=== PATIENT | male | born 1955 | race Caucasian/White ===

== ENCOUNTER 2022-06-11 09:08 | Outpatient (CLI) | payer MEDICARE, OTHER, SELFPAY ==
[2022-06-11 13:06] LABS: Chloride* 105 mmol/L (96-114)
[2022-06-11 13:07] LABS: Sodium* 137 mmol/L (135-149)
[2022-06-11 13:09] LABS: Carbon Dioxide* 23 mmol/L (20-32); Creatinine* 0.9 mg/dL (0.5-1.5); Estimated Glomerular Filt Rate 92 ml/min
[2022-06-11 13:10] LABS: Blood Urea Nitrogen* 19 mg/dL (7-30); Calcium* 9.6 mg/dL (8.4-10.6); Glucose* 106 mg/dL (60-115)
[2022-06-11 13:37] LABS: PSA Screen* 2.45 ng/mL (0.10-4.00)
== END 2022-06-11 09:09 | disposition home or self-care (01) ==
PROVIDERS: PCP Internal Medicine; Visit Provider Internal Medicine
DX: I10 Essential (primary) hypertension (principal); R97.20 Elevated prostate specific antigen [PSA]; Z12.5 Encounter for screening for malignant neoplasm of prostate
CPT/HCPCS: 80048; 84153

== ENCOUNTER 2022-10-14 08:00 | Outpatient (CLI) | payer MEDICARE, SELFPAY ==
[2022-10-14 09:52] LABS: Albumin* 4.1 g/dL (3.3-5.0); Chloride* 111 mmol/L (96-114)
[2022-10-14 09:53] LABS: Potassium* 4.8 mmol/L (3.6-5.1); Sodium* 140 mmol/L (135-149)
[2022-10-14 09:55] LABS: Alkaline Phosphatase* 106 U/L (40-150); Aspartate Amino Transferase* 31 U/L (12-35); Bilirubin Total* 0.7 mg/dL (0.1-1.5); Blood Urea Nitrogen* 33 mg/dL (7-30); Carbon Dioxide* 20 mmol/L (20-32); Cholesterol* 178 mg/dL (90-199); Creatinine* 1.1 mg/dL (0.5-1.5); Estimated Glomerular Filt Rate 73 ml/min
[2022-10-14 09:56] LABS: Alanine Aminotransferase* 34 U/L (4-50); Calcium* 9.4 mg/dL (8.4-10.6); Glucose* 108 mg/dL (60-115); HDL Cholesterol* 47 mg/dL (>=40); LDL Cholesterol Calculated 75 mg/dL (<100); Triglycerides* 281 mg/dL (40-149)
[2022-10-14 10:09] LABS: Creatinine Urine 167.3 mg/dL
[2022-10-14 10:12] LABS: Microalbumin Creatinine Ratio 0 mg/g (0-30); Microalbumin Urine 1 mg/dL
[2022-10-14 10:26] LABS: PSA Screen* 3.31 ng/mL (0.10-4.00)
== END 2022-10-14 08:01 | disposition home or self-care (01) ==
LOC: NFLDREF 08:00
PROVIDERS: PCP Internal Medicine; Visit Provider Internal Medicine
DX: E11.9 Type 2 diabetes mellitus without complications (principal); N40.1 Benign prostatic hyperplasia with lower urinary tract symptoms; E78.5 Hyperlipidemia, unspecified; E66.9 Obesity, unspecified; I10 Essential (primary) hypertension; R97.20 Elevated prostate specific antigen [PSA]
CPT/HCPCS: 80053; 80061; 82043; 82570; 84153

== ENCOUNTER 2022-12-14 19:44 | Outpatient (CLI) | payer MEDICARE, SELFPAY ==
--- OUTSIDE RECORDS SUMMARY | 2022-12-14 19:46 | XMS_ITS | Continuity of Care Document ---
Author Name Unknown Organization [facility] Address [address] [address] [place] [address] Phone Care Team Providers Care Nsh Teacher Name Role Phone Unavailable Unavailable Unavailable Allergies, Adverse Reactions, Alerts Substance Reaction Status Criticality No Known Allergies Active No Inform ation Medications Medication Instructions Dosage Effective Dates (start - stop) Status Comments finasteride 5 mg tablet take 1 tablet by oral route every day 5 MG - Active atorvastatin 40 mg tablet take 1 tablet by oral route every day 40 MG - Active aspirin 325 mg tablet take 1 Tablet by Oral route every day 1 Tablet - Active MiralaxBisacodylMagCit Colon Prep Use as directed - No Longer Active SIMVASTATIN (unknown strength) every day Not Available - No Longer Active Procedures Procedure Date Adenoma(s), Other Neoplasm Detected Duri ng Screen Colonoscopy Flex; W/remov Les- 18 Colonoscopy Flex; W/bx 1/mx Level Iv-surg Path Gross/micro 18 Colonoscopy Flex; Dx (sep Pro) 08 Colonoscopy Flex; Dx (may Advance Directives Directive Yes / No Effective Date File Name No Information Encounters Encounter Description Practice Location Reason(s) For Visit Diagnoses Date Provider Providers Copied on Encounter [facility], [address] [address], [place], [id number], [place] tel:[phone] Eladio [facility] No Information 0 8 No Information [facility], [address] [address], [place], [id number], [place] tel:[phone] [facility] Colorectal polypsDivertic ulosis of colon without diverticulitis Encounter for screening for malignant neoplasm of colonBenign neoplasm of ascending colonDvrtclos of lg int w/o perforation or abscess w/o bleedingBenign neoplasm of ascending colon 0 8 Abdiaziz Heaton. [address], [id number], [place]. tel:[phone] Referring Provider: Referral Self. [facility], [address] [address], [place], [id number], [place] tel:[phone] [facility] No Information 8 Bob Levi. [address], [id number], [place]. tel:[phone] [facility], [address] [address], [place], [id number], [place] tel:[phone] [facility] Diverticulosis Of ColonDiverticu losis Of ColonAbdominal Pain, UnspecifiedAbd ominal Pain, Unspecified 8 Gabriel Jimenez. 3001 [facility], [address], [id number], [place]. tel:[phone] [facility], [address] [address], [place], [id number], [place] tel:[phone] [facility] 5 No Information Family History Family Member Type Diagnosis Age At Onset Mother Problem (finding) Mother Problem (finding) cancer of colon Father Problem (finding) gallbladder disease Son Problem (finding) Alive and well Daughter Problem (finding) Alive and well Brother Problem (finding) Alive and well Daughter Problem (finding) asthma Sister Problem (finding) Alive and well Payers Payer name Insurance type Covered green party ID Authoriza tion(s) No Information Social History Type Description Quantity Date Captured Comments Sex Male Smoking Status No Information Chief Complaint And Reason For Visit No Information Reason For Referral Reason For Referral No Information Plan Of Treatment Date Type Action Status No Information History Of Present Illness Encounter Date Complaint History Of Prese nt Illness No Information Functional Status Date Functional Assessmen t No Information Instructions Date Instruction Additional Infor yusuf Diverticulosis/Diverticulitis Re lated to Colorectal polyps Colon Polyps Related to Color ectal polyps Colon Cancer Prevention Related to Colorectal polyps Assessments Type Assessment Date No Information Patient Care Teams Name Effective Dates (start - stop) Status Members No Information
== END 2022-12-14 19:45 | disposition home or self-care (01) ==
LOC: SLEEP 19:44
PROVIDERS: PCP Internal Medicine; Visit Provider Otolaryngology
DX: G47.30 Sleep apnea, unspecified (principal); G47.19 Other hypersomnia; R06.83 Snoring
CPT/HCPCS: 95806

== ENCOUNTER 2023-07-22 09:21 | Outpatient (CLI) | payer MEDICARE, OTHER, SELFPAY | END 2023-07-22 09:22 | disposition home or self-care (01) | PROVIDERS: PCP Internal Medicine; Referring Provider Internal Medicine; Visit Provider Internal Medicine | DX: Z12.5 Encounter for screening for malignant neoplasm of prostate (principal); E11.9 Type 2 diabetes mellitus without complications | CPT/HCPCS: 84153 ==

== ENCOUNTER 2024-02-10 08:42 | Outpatient (CLI) | payer MEDICARE, OTHER, SELFPAY ==
--- OUTSIDE RECORDS SUMMARY | 2024-02-27 22:22 | XMS_ITS | Data Portability ---
Author Organization [place] - [facility], [facility] Address [address] [place] [address] Care Team Providers Care Mining Engineering Technologist Name Role Phone EFREM ROSA Primary Care Provider Assessment No assessment recorded. Plan of Treatment Reminders Order Date Submit Date Provider Last Modified By Organization Details Last Modified Time Details Appointments None recorded. Lab PSA, total, serum or plasma 2019 021 [email or web address] Not available 1 14:44:53 PSA, total, serum or plasma 2019 021 [email or web address] Not available 1 14:44:53 PSA, total, serum or plasma 2021 022 [email or web address] Not available 3 09:35:29 Referral None recorded. Procedures bladder scan (PROC) 2019 020 [email or web address] [facility], [address], [address], [place], [address], 0 17:15:49 Surgeries None recorded. Imaging None recorded. Medication Orders finasterid e 5 mg tablet 2019 020 INTERFACE [id number], [address], [place], [address], 0 17:29:07 finasterid e 5 mg tablet 2020 021 PHILLIP [id number], [address], [place], [address], 1 10:15:56 finasterid e 5 mg tablet 2021 022 [id number], [address], [place], [address], 2 11:47:08 finasterid e 5 mg tablet 2023 024 [id number], [address], [place], [address], 4 10:12:55 Patient TargetsNo targets recorded. Patient InstructionsNo instructions recorded. Reason for Referral None Reported. Results Created Date Observation Date Name Description Value Unit Range Abnormal Flag LastModifiedBy Organization Detail LastModifiedTime 05/07/2020 bladd er scan (PROC ) Volume (in mL) 8 mLs Not Available [address] [address], [place], [address], 05/07/2020 17:15:27 05/16/20 20 bladd er scan (PROC ) No observ ation record ed. [email or web address] [id number] [facility] [address], [place], [address], 05/16/2020 09:43:47 05/18/20 21 05/15/2021 bladd er scan (PROC ) No observ ation record ed. [email or web address] Not Available 05/18/2021 10:07:45 06/25/20 22 06/22/2022 bladd er scan (PROC ) No observ ation record ed. BARCODE Not Available 06/25/2022 13:58:56 10/12/19 24 10/05/2023 bladd er scan (PROC ) No observ ation record ed. BARCODE Not Available 10/12/2023 10:33:25 Result Notes None recorded. Problems Name Status Onset Date Resolution Date Notes Provider Name and Address Organization Details Recorded Time Prostate specific antigen above reference range Active 012 790.93 : ELEVATED PSA - Notes:NEAG TIVE TRUS BIOPSY X 2 --11/2007 DR VALERA AND 04/25/2012 DR LYNN -VOLUME OF PROSTATE 80ml Not Available [facility] 02/21/2020 02:08:08 Lower urinary tract symptoms due to benign prostatic hypertrophy Active 022 Alcides Maravilla MD [address], [place], [address], [facility] 06/22/2022 11:44:53 Problem Notes None recorded. Procedures Surgical History Date Name Laterality Status Provider Name and Address Organization Details Recorded Time 10/05/19 24 COMPLEX VISIT completed Alcides Maravilla MD [address], [place], [address], [facility] 10/05/2023 11:02:20 10/05/19 24 Bladder Scan completed Delia Bright null, [facility] 10/05/2023 09:52:32 06/22/20 22 Bladder Scan completed [facility] null[facility] 06/22/2022 11:35:32 05/15/20 21 Bladder Scan completed Krista Kaplan null, [facility] 05/15/2021 10:03:07 09/05/19 19 Colonoscopy completed Delia Bright null, [facility] 10/05/2023 09:42:03 [facility]cyst[facility]/07[facility]2020 17:17:15 Imaging Results Imaging Date Name Status LastModified by Organiz ation Details LastModified Time 05/16/2020 bladder scan (PROC) completed [email or web address] [facility] [address], [place], [address], 05/16/2020 09:43:47 05/15/2021 bladder scan (PROC) completed BARCODE Information not available 05/18/2021 10:07:45 06/22/2022 bladder scan (PROC) completed BARCODE Information not available 06/25/2022 13:58:56 10/05/2023 bladder scan (PROC) completed BARCODE Information not available 10/12/2023 10:33:25 Procedure Notes None recorded. Medical Equipment None Reported. Allergies Allergen ID Allergen Name Allergen Category Reaction Reaction Severity Criticality Documentation Date Start Date Code Code System Note Provider Name and Address Organization Details Recorded Time 512195 amoxicill in medicatio n Not available Not available Not available 02/21/20202017 723 RxNorm Not Available [facility] 0 00:41:05 566370 Crestor medicatio n Not available Not available Not available 02/21/20202017 44262 4 RxNorm Not Available [facility] 0 00:41:05 274805 Dilantin medicatio n Not available Not available Not available 02/21/20202017 83069 0 RxNorm Not Available [facility] 0 00:41:05 184090 acetamino phen / hydrocodo ne medicatio n Not available Not available Not available 02/21/20202017 11701 2 RxNorm Not Available [facility] 0 00:41:05 870842 latex environme nt,medica tion Not available Not available Not available 02/21/20202017 91767 91 RxNorm Not Available [facility] 0 00:41:06 048392 phenytoin medicatio n Not available Not available Not available 02/21/20202017 8183 RxNorm Not Available [facility] 0 00:41:06 331014 sulfameth oxazole / trimethop rim medicatio n Not available Not available Not available 02/21/20202017 19079 RxNorm Not Available [facility] 0 00:41:06 Medications Name Sig Start Date Stop Date Status Note LastModified by Organization Details LastModified Time atorvastati n 40 mg tablet 05/15 completed Not Available Not Available Not Available valsartan 80 mg tablet active Not Available Not Available Not Available lisinopril 10 mg tablet 06/22 completed Not Available Not Available Not Available metformin ER 500 mg tablet,exte nded release 24 hr active Not Available Not Available Not Available doxycycline hyclate 100 mg tablet 05/15 completed Not Available Not Available Not Available finasteride 5 mg tablet TAKE ONE TABLET BY MOUTH ONE TIME DAILY 2023 active Not Available Not Available Not Avai lable valsartan 40 mg tablet bid 10/05 completed Not Available Not Available Not Available rosuvastati n 20 mg tablet active Not Available Not Available Not Available aspirin active Not Available Not Avail able Not Available Accu-Chek Guide test strips USE 1 STRIP TO TEST BLOOD SUGAR TWICE DAILY active Not Available Not Available No t Available Accu-Chek Fastclix Lancet Drum USE TO TEST BLOOD SUGAR TWICE DAILY. active Not Available Not Available No t Available QuickVue At-Home COVID-19 Test kit [facility] IN [facility] . 10/05 completed Not Available Not Available Not Available Paxlovid 300 mg (150 mg x 2)-100 mg tablets in a dose pack 10/05 completed Not Available Not Available Not Available Vitals Date Recorded Body height Body mass index (BMI) Body weight Provider Name and Address Organization Details Last Updated DateTime 06/22/2022 172.72 cm 31.5 kg/m2 78363.62 g Ricci Vasquez [facility] 06/22/2022 11:27:56 Date Recorded Body height Body mass index (BMI) Body weight Provider Name and Address Organization Details Last Updated DateTime 10/05/2023 172.72 cm 31.9 kg/m2 30705.4 g Delia Bright [facility] 10/05/2023 09:41:27 Date Recorded Body weight Body mass index (BMI) Body height Provider Name and Address Organization Details Last Updated DateTime 05/15/2021 75856.62 g 31.5 kg/m2 172.72 cm Juan Luke [facility] 05/15/2021 09:57:10 Date Recorded Body height Body mass index (BMI) Body weight Provider Name and Address Organization Details Last Updated DateTime 05/07/2020 172.72 cm 31.5 kg/m2 18119.62 g Juan Luke [facility] 05/07/2020 16:59:38 Social History Question Answer Notes LastModified by Organizat ion Details LastModified Time Tobacco Smoking Status Never Smoker Juna cruz [facility] 05/07/2020 17:00:06 What Is Your Level Of Alcohol Consumption? Occasional Information not available 05/07/2020 What Is Your Level Of Caffeine Consumption? Moderate Information not available 05/07/2020 Recreational Drug Use No Information not available 05/07/2020 What Was The Date Of Your Most Recent Tobacco Screening? 10/05/2023 [email or web address] Information not available 10/05/2023 Have You Ever Been Counseled For Unhealthy Alcohol Use? No [email or web address] Information not available 10/05/2023 Do You Use Any Illicit Or Recreational Drugs? No [email or web address] Information not available 10/05/2023 Has Tobacco Cessation Counseling Been Provided? No [email or web address] Information not available 10/05/2023 Do You Or Have You Ever Used Any Other Forms Of Tobacco Or Nicotine? No [email or web address] Information not available 10/05/2023 How Many Days In The Past Year Have You Consumed 5 Or More Drinks? 0 [email or web address] Information no t available 10/05/2023 Sex: Unknown Functional Status None recorded. Mental Status None recorded. Family History Relationship Description Onset Age of this Age Resolved Age Notes Father Family history of Hypertension Mother Family history of diabetes mellitus Mother Family history of malignant neoplasm Unsure where it originated Medical History Condition Response Diabetes Y Other Y Bleeding Disorder N High Blood Pressure Y High Cholesterol Y Cancer N Depression N Immunizations Vaccine Type Date Status Provider Name and Address Organization Details Recorded Time [facility]V [facility]14/[facility] 10:10:39 zoster recombinant 01/16/2019 [facility]2023 10:10:39 zoster recombinant 03/21/2019 completed Rea Gra f null [facility] 09/30/2023 10:10:39 zoster recombinant [facility]/26/[facility] 10:10:39 COVID-19, mRNA, LNP-S, PF, 30 mcg/0.3 mL dose 10/29/[address] [facility] 09/30/2023 10:10:39 COVID-19, mRNA, LNP-S, PF, 30 mcg/0.3 mL dose 11/26/2020 completed Rea Bora anthony [facility] 09/30/2023 10:10:39 COVID-19, mRNA, LNP-S, PF, 30 mcg/0.3 mL dose 06/10/2021 completed Rea Anamosa null, [facility] 09/30/2023 10:10:39 COVID-19, mRNA, LNP-S, PF, 30 mcg/0.3 mL dose, ladan-sucrose 03/31/2022 completed Rea [facility]amosa null, [facility] 09/30/2023 10:10:39 typhoid, unspecified formulation 02/04/2003 completed Rea Bora null, [facility] 09/30/2023 10:10:39 Td (adult), 5 Lf tetanus toxoid, preservative free, adsorbed 09/29/2017 completed Rea Bora null, [facility] 09/30/2023 10:10:39 Td (adult), 2 Lf tetanus toxoid, preservative free, adsorbed 03/14/1997 completed Rea Bora null, [facility] 09/30/2023 10:10:39 Hep A, pediatric, unspecified formulation 09/09/1999 completed Rea Bora null, [facility] 09/30/2023 10:10:39 Hep A, pediatric, unspecified formulation 02/17/1999 completed Rea Anamosa null, [facility] 09/30/2023 10:10:39 Influenza, adjuvanted, quadrivalent, PF 07/01/2022 completed Delia May null, [facility] 10/05/2023 09:41:32 Influenza, adjuvanted, quadrivalent, PF 08/18/2023 completed Delia May null, [facility] 10/05/2023 09:41:32 COVID-19, mRNA, LNP-S, bivalent, PF, 30 mcg/0.3 mL dose 07/05/2022 completed Delia January null, [facility] 10/05/2023 09:41:32 COVID-19, mRNA, LNP-S, PF, 50 mcg/0.5 mL 06/17/2023 completed Delia January null, [facility] 10/05/2023 09:41:32 pneumococcal polysaccharide PPV23 01/25/2019 completed Rea Anamosa null, [facility] 09/30/2023 10:10:39 Pneumococcal conjugate PCV 13 12/25/2018 completed SHANEL Nieves [facility] 09/30/2023 10:10:39 Past Encounters Encounter ID Performer Location Encounter Start Date Encounter Closed Date Diagnosis/Indication Diagnosis SNOMED-CT Code [id number] [facility] [address] [place] [address] 05/07/2020 16:55:31 05/15/2020 12:45:32 Benign prostatic hyperplasia with outflow obstruction 806900818 [id number] [facility] [address] [place] [address] 05/15/2021 09:31:44 05/18/2021 15:33:04 Benign prostatic hyperplasia with outflow obstruction 480840346 Prostate s pecific antigen above reference range 278435471 [id number] Alcides Maravilla MD [address] [place] [address] 06/22/2022 11:22:56 06/24/2022 11:50:18 Lower urinary tract symptoms due to benign prostatic hypertrophy [id number] Prostate s pecific antigen above reference range [id number] Alcides [facility]illa MD [facility] [address] [place] [address] 10/05/2023 09:31:03 10/10/2023 11:20:32 Prostate specific antigen above reference range 171085221 Lower urin arabella tract symptoms due to benign prostatic hypertrophy 22607014396351 Health Concerns Section Related Observation LastModified by Organization Detai ls LastModified Time None Recorded Concern Status LastModified by Organization Details LastModified Time None Recorded Advance Directives Directive None Recorded Payers Encounter Date Sequence Insurance Name Policy Number Policy Malhotra Covered Member ID Malhotra Member ID Guarantor Name 05/07/2020 1 [place] [employer] [facility] Omid Polanco [id number] Omid Polanco 05/07/2020 2 [facility] [id number] Omid Polanco [id number] Omid Polanco 05/15/2021 1 [place] [employer] [facility] Omid Polanco [id number] Omid Lindsay Polanco 05/15/2021 2 MEDICA (MEDICARE SUPPLEMENT) [id number] Omid Dong Collin [id number] Omid Polanco 06/22/2022 1 [place] [employer] [facility] Omid Polanco [id number] Omid Polanco 06/22/2022 2 MEDICA (MEDICARE SUPPLEMENT) [id number] Omid Dong Collin [id number] Omid Lindsay Collin 10/05/2023 1 [place] [employer] [facility] Omid Polanco [id number] Omid Polanco 10/05/2023 2 INSURANCE [employer]MINISTR[employer] SOLUT[employer] - MEDICA (MEDICARE SUPPLEMENT) Omid Lindsay Collin [id number] Omid Neftali Polanco Notes Date Note Type Note Provider Name and Address Organization Details Recorded Time 05/07/2020 text/html HPI Notes: Has h ad negative biopsy by Dr. Valera [address] Lynn 2011. Prostate volume 80 gm. Does not have any voiding sx. AUA SS 2. No family hx of prostate cancer.PSA 9.28 04/08/14. He underwent MRI of the prostate on 05/24/14 suggesting a 7 mm PI-RADS 4 lesion at the 6:00 apex peripheral zone. 11 cores of cognitive fusion TRUS biopsy on 06/18/14 are all benign. Prostate measures 100 gm by MRI and 112 gm by TRUS. 07/06/17: PSA 9.99; MRI Oct 2016 shows small PIRADS 2 lesions, gland 126 gm. Has worsening urge/urge incontinence. 02/06/18: Has been on finasteride for 7 months and PSA down to 3.45 (6.9 adjusted). 02/07/19: PSA 3.66 (7.3 adjusted) at [place] 12/21/18. No new urinary sx. Doing well on finasteride 12/21/19: PSA 2.51 (5.02 adjusted); Urinary sx stable. Alcides Maravilla MD [address] [place] [address],[address], [place], [address], [facility] 05/07/2020 18:24:32 05/15/2021 text/html HPI Notes: Has h ad negative biopsy by Dr. Valera [address] Lynn 2011. Prostate volume 80 gm. Does not have any voiding sx. AUA SS 2. No family hx of prostate cancer.PSA 9.28 04/08/14. He underwent MRI of the prostate on 05/24/14 suggesting a 7 mm PI-RADS 4 lesion at the 6:00 apex peripheral zone. 11 cores of cognitive fusion TRUS biopsy on 06/18/14 are all benign. Prostate measures 100 gm by MRI and 112 gm by TRUS. 07/06/17: PSA 9.99; MRI Oct 2016 shows small PIRADS 2 lesions, gland 126 gm. Has worsening urge/urge incontinence. 02/06/18: Has been on finasteride for 7 months and PSA down to 3.45 (6.9 adjusted). 02/07/19: PSA 3.66 (7.3 adjusted) at [place] 12/21/18. No new urinary sx. Doing well on finasteride 12/21/19: PSA 2.51 (5.02 adjusted); Urinary sx stable. 05/15/21: He continues to do well on finasteride. AUA symptom score 4, bother 1. Postvoid residual 0 mL. PSA 2.34 (4.68 adjusted) on 02/16/2021 at [facility]. Alcides Maravilla MD [address] [place] [address],[address], [address], [facility] 05/15/2021 11:42:07 06/22/2022 text/html HPI Notes: Very pleasant long-term patient with history of elevated PSA. He formally followed with Dr. Valera and Dr. Lynn and had an MRI and biopsy in 2013 which was benign. Negative MRI in 2017. Prostate measured 126 cm??. He is a managed with long-term finasteride and PSA has come down from 9.9 now to 2.45 (4.9 adjusted). Urinary symptoms are well controlled. Alcides Maravilla MD [address] [place] [address],[address], [address], [facility] 06/22/2022 13:01:50 10/05/2023 text/html HPI Notes: 06/22/22: Very pleasant long-term patient with history of elevated PSA. He formally followed with Dr. Valera and Dr. Lynn and had an MRI and biopsy in 2013 which was benign. Negative MRI in 2017. Prostate measured 126 cm??. He is a managed with long-term finasteride and PSA has come down from 9.9 now to 2.45 (4.9 adjusted). Urinary symptoms are well controlled. 10/05/23: He is doing well on finasteride. Recent PSA 2.82 (5.64 adjusted). Postvoid residual 14 mL. AUA symptom score 5, bother 0. Alcides Maravilla MD [address] [place] [address],[address], [address], [facility] 10/05/2023 11:02:43
--- OUTSIDE RECORDS SUMMARY | 2024-02-27 22:22 | XMS_ITS | Continuity of Care Document ---
Author Organization [facility] Address [address] [address] [place] [address] Phone Care Team Providers Care Home Health Billing Specialist Name Role Phone Alisson SCHULTE [place] Unavailable Unavailab le Allergies, Adverse Reactions, Alerts Substance Reaction Status Criticality No Known Allergies Active No Inform ation Medications Medication Instructions Dosage Effective Dates (start - stop) Status Comments metformin 500 mg tablet take 1 tablet by ORAL route 2 times every day with morning and evening meals 500 MG - Active valsartan 80 mg tablet take 1 tablet by oral route every day 80 MG - Active finasteride 5 mg tablet take 1 tablet by oral route every day 5 MG - Active atorvastatin 40 mg tablet take 1 tablet by oral route every day 40 MG - Active aspirin 325 mg tablet take 1 Tablet by O ral route every day 1 Tablet - Active Procedures Procedure Date Colonoscopy Flex; W/remov Les- 23 Level Iv-surg Path Gross/micro 23 Adenoma(s), Other Neoplasm Detected Duri ng Screen Colonoscopy Flex; W/remov Les- 18 Colonoscopy Flex; W/bx 1/mx Level Iv-surg Path Gross/micro 18 Colonoscopy Flex; Dx (may Pro) Colonoscopy Flex; Dx (may Advance Directives Directive Yes / No Effective Date File Name No Information Encounters Encounter Description Practice Location Reason(s) For Visit Diagnoses Date Provider Providers Copied on Encounter [facility], [address] [address], [place], [id number], [place] tel:[phone] [facility] No Information 3 Alisson ERIS JimenezOneida. [address] [facility] [facility] [address], [place], [place], [id number], [place]. tel:[phone] Referring Provider: Karine Nichols, [address] [facility] [address], [place], [address] . tel:[phone] [facility], [address] [address], [place], [id number], [place] tel:[phone] [facility] GI Symptoms or Concerns (chief complaint) Personal history of colonic polypsColorectal polypsDiverticul osis of colon without diverticulitisHe morrhoids, internalEncounte r for screening for malignant neoplasm of colonBenign neoplasm of transverse colonBenign neoplasm of descending colonEncounter for screening for malignant neoplasm of colonBenign neoplasm of descending colonBenign neoplasm of transverse colonPersonal history of colonic polyps 3 João Milton. [address] [facility] [facility], [facility] [address], [place], [place], [id number], [place]. tel:[phone] Referring Provider: Referral Self, USE FOR SELF REFERRALS. [facility], [address] [address], [place], [place], [id number], [place] tel:[phone] [facility] No Information 3 Gage Otrega. [address] [facility], [place], [place], [id number], [place]. tel:[phone] [facility], [address] [address], [place], [id number], [place] tel:[phone] [facility] Colorectal polypsDiverticul osis of colon without diverticulitisEn counter for screening for malignant neoplasm of colonBenign neoplasm of ascending colonDvrtclos of lg int w/o perforation or abscess w/o bleedingBenign neoplasm of ascending colon [phone] Abdiaziz Heaton. [address] [facility], [place], [place], [id number], [place]. tel:[phone] Referring Provider: Referral Self, USE FOR SELF REFERRALS. [facility], [address] [address], [place], [id number], [place] tel:[phone] [facility] Diverticulosis Of ColonDiverticulo sis Of ColonAbdominal Pain, UnspecifiedAbdom inal Pain, Unspecified Jun- 8 Gabriel Jimenez. [address] [facility], [place], [place], [id number], [place]. tel:[phone] [facility], [address] [address], [place] [facility] [place], [id number], [place] tel:[phone] [facility] May- 5 No Information Family History Family Member Type Diagnosis Age At Onset Mother Problem (finding) Mother Problem (finding) cancer of colon Father Problem (finding) gallbladder disease Son Problem (finding) Alive and well Daughter Problem (finding) Alive and well Brother Problem (finding) Alive and well Daughter Problem (finding) asthma Mother Problem (finding) Cancer, unknown Mother Problem (finding) Asthma Sister Problem (finding) Alive and well Immunizations Vaccine Date Status Comments SARS-COV-2 (COVID-19) vaccin e, mRNA, spike protein, LNP, bivalent, preservative free, 30 mcg/0.3 mL dose, ladan-sucrose formulation administered Note: [facility] bi-direct ional interface ; Source: Other Registry influenza, seasonal vaccine, quadrivalent, adjuvanted, 0.5mL dose, preservative free administered Note: [facility] bi-di rectional interface ; Source: Other Registry SARS-COV-2 (COVID-19) vaccin e, mRNA, spike protein, LNP, preservative free, 30 mcg/0.3mL dose, ladan-sucrose formulation administered Note: [facility] bi- directional interface ; Source: Other Registry SARS-COV-2 (COVID-19) vaccin e, mRNA, spike protein, LNP, preservative free, 30 mcg/0.3mL dose administered Note: [facility] bi-direct ional interface ; Source: Other Registry SARS-COV-2 (COVID-19) vaccin e, mRNA, spike protein, LNP, preservative free, 30 mcg/0.3mL dose administered Note: [facility] bi-direct ional interface ; Source: Other Registry SARS-COV-2 (COVID-19) vaccin e, mRNA, spike protein, LNP, preservative free, 30 mcg/0.3mL dose administered Note: [facility] bi-direct ional interface ; Source: Other Registry zoster vaccine recombinant administered N ote: [facility] bi-directional interface ; Source: Other Registry zoster vaccine recombinant administered N ote: [facility] bi-directional interface ; Source: Other Registry Pneumovax administered Note: [facility] bi-d irectional interface ; Source: Other Registry zoster vaccine recombinant administered N ote: [facility] bi-directional interface ; Source: Other Registry Prevnar 13 administered Note: [facility] bi-d irectional interface ; Source: Other Registry tetanus and diphtheria toxoi ds, adsorbed, preservative free, for adult use (5 Lf of tetanus toxoid and 2 Lf of diphtheria toxoid) administered Note: [facility] bi-direct ional interface ; Source: Other Registry poliovirus vaccine, inactivated administe red Note: [facility] bi- directional interface ; Source: Other Registry Payers Payer name Insurance type Covered libertarian ID Authoriza tion(s) Medicare NGS MB [id number] [employer] Medicare Supplement Claims [id number] Social History Type Description Quantity Date Captured Comments Sex Male Smoking Status No Information Chief Complaint And Reason For Visit No Information Reason For Referral Reason For Referral No Information History Of Present Illness Encounter Date Complaint History Of Prese nt Illness GI Symptoms or Concerns Functional Status Date Functional Assessmen t No Information Instructions Date Instruction Additional Infor mation Diverticulosis/Diverticulitis Re lated to Diverticulosis of colon without diverticulitis Colon Polyps Related to Diver ticulosis of colon without diverticulitis Hemorrhoids Related to Diver ticulosis of colon without diverticulitis Colon Cancer Prevention Related to Diverticulosis of colon without diverticulitis High Fiber Diet Related to Diver ticulosis of colon without diverticulitis Diverticulosis/Diverticulitis Re lated to Colorectal polyps Colon Polyps Related to Color ectal polyps Colon Cancer Prevention Related to Colorectal polyps Assessments Type Assessment Date No Information Patient Care Teams Name Effective Dates (start - stop) Status Members No Information
== END 2024-02-10 08:43 | disposition home or self-care (01) ==
LOC: NFLDREF 02-27 22:20
PROVIDERS: PCP Internal Medicine; Referring Provider Internal Medicine; Visit Provider Internal Medicine
DX: E11.9 Type 2 diabetes mellitus without complications (principal); I10 Essential (primary) hypertension; E78.5 Hyperlipidemia, unspecified; E66.9 Obesity, unspecified
CPT/HCPCS: 80053; 80061; 82043; 82570

== ENCOUNTER 2024-10-22 09:08 | Outpatient (CLI) | payer MEDICARE, SELFPAY | END 2024-10-22 09:09 | disposition home or self-care (01) | LOC: NFLDREF 10-28 09:22 | PROVIDERS: PCP Internal Medicine; Referring Provider Internal Medicine; Visit Provider Internal Medicine | DX: R97.20 Elevated prostate specific antigen [PSA] (principal); Z12.5 Encounter for screening for malignant neoplasm of prostate | CPT/HCPCS: G0103 ==

== ENCOUNTER 2025-04-23 09:10 | Outpatient (CLI) | payer MEDICARE, OTHER, SELFPAY | END 2025-04-23 09:11 | disposition home or self-care (01) | LOC: NFLDREF 05-15 00:27 | PROVIDERS: PCP Internal Medicine; Referring Provider Internal Medicine; Visit Provider Internal Medicine | DX: E11.9 Type 2 diabetes mellitus without complications (principal) | CPT/HCPCS: 80053; 80061; 82043; 82570 ==

== ENCOUNTER 2025-04-25 13:58 | Outpatient (CLI) | payer MEDICARE, OTHER, SELFPAY | END 2025-04-25 13:59 | disposition home or self-care (01) | PROVIDERS: PCP Internal Medicine; Visit Provider Internal Medicine | DX: E11.9 Type 2 diabetes mellitus without complications (principal) | CPT/HCPCS: 80053; 80061 ==